=== PATIENT | female | born 1980 | race Caucasian/White ===

== ENCOUNTER 2016-08-31 06:21 | Outpatient (CLI) | payer BC ==
[~2016-08-31] VITALS: Ht 177.8 cm; Wt 79.5 kg
[2016-08-31 06:46] VITALS: BP 120/70; PULSE 58; TEMP 98.2
[2016-08-31] MEDS ORDERED: PRENATAL1 TA7 PO (06:57)
[2016-08-31 07:07] VITALS: BP 120/70; PULSE 58; TEMP 98.2
[2016-09-01] MEDS ORDERED: PERCOCET 325 MG1 TA2 PO (17:27)
[2016-09-01] MEDS ORDERED: IBU800 M1 PO (17:27)
== END 2016-08-31 08:15 | disposition home or self-care (01) ==
LOC: LDRO 06:21
DX: O47.1 False labor at or after 37 completed weeks of gestation (principal); Z3A.39 39 weeks gestation of pregnancy

== ENCOUNTER 2016-09-01 03:48 | Inpatient (IN) | payer BC ==
[2016-09-01] VITALS (44 sets, daily range): BP systolic 105–149; BP diastolic 51–80; PULSE 57–123; TEMP 98.2–98.5
[~2016-09-01] VITALS: Ht 177.8 cm; Wt 79.5 kg
[~2016-09-01 03:48] MED LIST: PRENATAL1 TA7 PO
[2016-09-01 04:56] LABS: BASO # 0.1 (0.0-0.2); BASO % 0.5 % (0.0-2.0); EOS % 0.3 % (0-4.0); GRAN % 74.3 % (42.2-75.2); LYMPH # 1.7 (1.2-3.4); LYMPH % 15.8 % (20.0-51.0); MEAN CELL VOLUME 92 fl (80.0-100.0); MEAN CORPUSCULAR HGB CONC 33 g/dl (33.0-37.0); MEAN PLATELET VOLUME 10.8 fl (7.4-10.4); MONO # 0.9 (0.1-0.6); MONO % 8.4 % (1.7-9.3); PLATELET COUNT 282 K/mm3 (130-400); RED BLOOD COUNT 3.51 M/mm3 (4.10-5.30); REDCELL DISTRIBUTION WIDTH-CV 13.3 % (11.5-14.5); WHITE BLOOD COUNT 10.7 K/mm3 (4.8-10.8)
[2016-09-01 05:00] LABS: HEMATOCRIT 32.2 % (37.0-47.0); HEMOGLOBIN 10.5 g/dl (12.5-16.0); MEAN CORPUSCULAR HEMOGLOBIN 30 pg (27.0-31.0)
[2016-09-01] MEDS ORDERED: IBU800 M1 PO (17:27)
[2016-09-01] MEDS ORDERED: PERCOCET 325 MG1 TA2 PO (17:27)
[2016-09-02 02:30] VITALS: BP 94/81; PULSE 87; TEMP 98.2
[2016-09-02 09:30] VITALS: BP 122/72; PULSE 102; TEMP 97.3
[2016-09-02 13:30] VITALS: BP 120/70; PULSE 88; TEMP 97.8
[2016-09-02 17:30] VITALS: BP 111/61; PULSE 64; TEMP 97.7
[2016-09-02 19:30] VITALS: BP 107/59; PULSE 81; TEMP 98.1
[2016-09-03 08:15] VITALS: BP 127/83; PULSE 88; TEMP 98.2
[2016-09-03] MEDS ORDERED: PERCOCET 325 MG1 TA2 PO (10:17)
== END 2016-09-03 19:00 | disposition home or self-care (01) | DRG 767 ==
LOC: LDRO 03:48 → LDR 04:15 → OB 19:11
PROVIDERS: Student in an Organized Health Care Education/Training Program
PROC: 10E0XZZ Delivery of Products of Conception, External Approach (ICD-10-PCS; principal; 2016-09-01)
PROC: 10D17ZZ Extraction of Products of Conception, Retained, Via Natural or Artificial Opening (ICD-10-PCS; 2016-09-01)
PROC: 0KQM0ZZ Repair Perineum Muscle, Open Approach (ICD-10-PCS; 2016-09-01)
DX: O48.0 Post-term pregnancy (principal); O36.0130 Maternal care for anti-D [Rh] antibodies, third trimester, not applicable or unspecified; O76 Abnormality in fetal heart rate and rhythm complicating labor and delivery; O70.1 Second degree perineal laceration during delivery; O09.513 Supervision of elderly primigravida, third trimester; O75.89 Other specified complications of labor and delivery; O73.1 Retained portions of placenta and membranes, without hemorrhage; Z3A.40 40 weeks gestation of pregnancy; Z37.0 Single live birth
CPT/HCPCS: J2590; J7120

== ENCOUNTER → 2016-09-06 | Outpatient (CLI) | payer BC ==
[~2016-09-06] MED LIST changes: +IBU800 M1 PO; +PERCOCET 325 MG1 TA2 PO
== END ==
LOC: OLC 09:04
DX: Z39.1 Encounter for care and examination of lactating mother (principal); Z71.89 Other specified counseling

== ENCOUNTER → 2016-09-11 | Outpatient (CLI) | payer BC | LOC: OLC 11:11 | DX: Z39.1 Encounter for care and examination of lactating mother (principal); Z71.89 Other specified counseling ==

== ENCOUNTER → 2017-01-25 | Outpatient (CLI) | payer BC | LOC: MC.RAD 09:00 | DX: N60.12 Diffuse cystic mastopathy of left breast (principal); N63 Unspecified lump in breast ==

== ENCOUNTER → 2017-08-02 | Outpatient (CLI) | payer BC | LOC: MC.RAD 09:40 | DX: N60.02 Solitary cyst of left breast (principal) ==